=== PATIENT | female | born 2000 | race Two or more races ===

== ENCOUNTER 2023-01-10 20:44 | Emergency (ER) | payer OTHER ==
[2023-01-10 20:52] VITALS: BMI 21.1
[2023-01-10] MEDS ORDERED: SODIUM CHLORIDE 0.9% 500 ML INFUS.BAG IV ONE (22:01)
[2023-01-10] MEDS ORDERED: ACETAMINOPHEN 1000 MG/100 ML BAG IVPB ONE (22:01)
[2023-01-10] MEDS ORDERED: ONDANSETRON 4 MG/2 ML VIAL IVPUSH ONE (22:01)
[2023-01-10] MEDS ORDERED: FAMOTIDINE 20 MG/50 ML IVPB 20 MG/50 ML MG IVPB ONE ×2 (22:01→22:45)
[2023-01-10] MEDS ORDERED: ACETAMINOPHEN INJECTION 100 ML IVPB ONE (22:45)
[2023-01-10] MEDS ORDERED: ONDANSETRON 4 MG/2 ML VIAL ONE (22:46)
[2023-01-10 23:04] LABS: BASO % 0.2 % (0-2.0); EOS % 0.4 % (0-4.5); HEMOGLOBIN 13.5 GM/dL (10.7-15.3); LYMPH % 2.6 % (8-40); MCH 29.2 pg (25.7-33.7); MCHC 33.8 g/dl (32.0-36.0); MEAN CELL VOLUME 86.6 fl (80-96); MEAN PLT VOLUME 7.1 fl (7.5-11.1); MONO % 3.9 % (3.8-10.2); NEUT % 92.9 % (42.8-82.8); PLATELET COUNT 343 10^3/uL (134-434); RBC 4.62 M/mm3 (3.60-5.2); RDW 13.2 % (11.6-15.6); WHITE BLOOD COUNT 11.2 K/mm3 (4.0-10.0)
[2023-01-10 23:12] LABS: INR 1.23 (0.83-1.09); PROTHROMBIN TIME (PATIENT) 14.2 SEC (9.7-13.0)
[2023-01-10 23:14] LABS: ACTIVATED PTT 26.3 SECONDS (25.2-36.5)
[2023-01-10 23:18] LABS: BLOOD UREA NITROGEN 18.4 mg/dL (7-18); CALCIUM 9.1 mg/dL (8.5-10.1); MAGNESIUM 1.6 mg/dL (1.8-2.4)
[2023-01-10 23:19] LABS: ALBUMIN 4.4 g/dl (3.4-5.0)
[2023-01-10 23:21] LABS: CREATININE 0.8 mg/dL (0.55-1.3)
[2023-01-10 23:23] LABS: BILIRUBIN,TOTAL 0.7 mg/dL (0.2-1); TOT PROT 8.1 g/dl (6.4-8.2)
[2023-01-10 23:31] LABS: ANISOCYTOSIS 1+; MACROCYTOSIS 0
[2023-01-11] MEDS ORDERED: SODIUM CHLORIDE 0.9% 500 ML INFUS.BAG IV ONE (00:29)
[2023-01-11 02:06] LABS: EPI CELLS 21 /uL (0-25.1); HYALINE CASTS 2 /uL (0-3.1); PH,URINE 5.5 (5.0-8.0); URINE APPEARANCE CLOUDY; URINE BACTERIA 1601 /uL (0-1359); URINE BILIRUBIN NEGATIVE (NEGATIVE); URINE COLOR YELLOW; URINE GLUCOSE (UA) NEGATIVE (NEGATIVE); URINE KETONE 4+ (NEGATIVE); URINE LEUK ESTERASE TRACE (NEGATIVE); URINE NITRITE NEGATIVE (NEGATIVE); URINE PROTEIN NEGATIVE (NEGATIVE); URINE UROBILINOGEN 0.2 mg/dL (0.2-1.0); URINE WBC 186 /uL (0-25.8)
[2023-01-11] MEDS ORDERED: CEFTRIAXONE 1 GM in DEXTROSE 5%-WATER - 50 ML IVPB ONE (02:09)
[2023-01-11] MEDS ORDERED: CEFTRIAXONE 1 GM/50 ML BAG ONE (02:23)
[2023-01-11 03:04] LABS: URINE RBC 60 /uL (0-23.9); YEAST RARE (NEGATIVE)
[2023-01-11 03:28] VITALS: BP 109/65; PULSE 98; RESP 20; TEMP 98.6
== END 2023-01-11 03:39 | disposition home or self-care (01) ==
LOC: JER 20:44
PROC: 3E033GC Introduction of Other Therapeutic Substance into Peripheral Vein, Percutaneous Approach (ICD-10-PCS; principal; 2023-01-10)
PROC: 3E033GC Introduction of Other Therapeutic Substance into Peripheral Vein, Percutaneous Approach (ICD-10-PCS; 2023-01-10)
PROC: 3E033GC Introduction of Other Therapeutic Substance into Peripheral Vein, Percutaneous Approach (ICD-10-PCS; 2023-01-10)
PROC: 3E03329 Introduction of Other Anti-infective into Peripheral Vein, Percutaneous Approach (ICD-10-PCS; 2023-01-11)
DX: R11.2 Nausea with vomiting, unspecified (principal); R10.13 Epigastric pain; R19.7 Diarrhea, unspecified; R00.0 Tachycardia, unspecified; Z20.822 Contact with and (suspected) exposure to COVID-19
CPT/HCPCS: 0241U-QW; 36415; 80053; 81003; 83690; 83735; 84703; 85025; 85610; 85730; 87077; 87086; 99284-25